=== PATIENT | female | born 1985 | race African-American/Black ===

== ENCOUNTER 2018-10-24 06:23 | Inpatient (IN) | payer SELFPAY ==
[~2018-10-24] VITALS: Ht 167.6 cm; Wt 77.1 kg
[2018-10-24] MEDS ORDERED: LACTATED RINGERS 1,000 ML IV SCH (06:41)
[2018-10-24] MEDS ORDERED: DEXT 5%/LR + PITOCIN 20UNITS/L 1,000 ML IV SCH ×2 (06:41→08:55)
[2018-10-24] MEDS ORDERED: BUTORPHANOL TARTRATE 2 MG/ML VIAL IV PRN ×2 (06:45→09:45)
[2018-10-24] MEDS ORDERED: LIDOCAINE HCL 1% 20ML VIAL (Pyxis) INJ INFIL SCH (06:45)
[2018-10-24] MEDS ORDERED: NALOXONE HCL 0.4 MG/ML 1ML VIAL IM PRN (06:45)
[2018-10-24] MEDS ORDERED: METHYLERGONOVINE MALEATE 0.2 MG/ML IM PRN (06:45)
[2018-10-24] MEDS ORDERED: CARBOPROST TROMETHAMINE 250 MCG/ML AMPUL IM PRN (06:45)
[2018-10-24] MEDS ORDERED: TERBUTALINE SULFATE 1MG/ML VIAL SUBCUT ONE (07:00)
[2018-10-24 07:07] LABS: BASOPHILS % 0.2 % (0.0-2.0); CLARITY URINE CLEAR (CLEAR); COLOR URINE YELLOW (YELLOW); EOSINOPHILS % 0.6 % (0.0-5.0); HEMATOCRIT. 29.5 % (36.0-48.0); HEMOGLOBIN. 9.7 g/dL (12.0-16.0); KETONES URINE NEGATIVE (NEGATIVE); LEUKOCYTE ESTERASE URINE 1+ (NEGATIVE); LYMPHOCYTES % 27.7 % (20.0-50.0); MEAN CORPUSCULAR HEMOGLOBIN 23.5 pg (28.0-32.0); MEAN CORPUSCULAR VOLUME 71.5 fL (81.0-99.0); MEAN PLATELET VOLUME 7.5 fl (7.4-10.4); MONOCYTES % 10.2 % (2.0-8.0); NEUTROPHILS % 61.3 % (40.0-76.0); NITRITE URINE NEGATIVE (NEGATIVE); OCCULT BLOOD URINE TRACE (NEGATIVE); PLATELET 354 x1000/uL (130-400); PROTEIN URINE NEGATIVE (NEGATIVE); RED BLOOD CELL COUNT 4.12 mill/uL (4.2-5.4); RED CELL DISTRIBUTION WIDTH 16.6 % (11.6-14.6); SPECIFIC GRAVITY URINE 1.012 (1.005-1.030); UROBILINOGEN URINE 0.2 E.U./dL (0.2-1.0)
[2018-10-24] MEDS ORDERED: MORPHINE SULFATE/PF 1MG/ML 10ML AMP ONE (07:12)
[2018-10-24 07:13] LABS: INR 0.9; PARTIAL THROMBOPLASTIN TIME 27.1 sec (23.4-31.0); PROTHROMBIN TIME 9.4 sec (9.1-11.1)
[2018-10-24] MEDS ORDERED: FENTANYL CITRATE/PF 50MCG/ML 2ML VIAL ONE (07:13)
[2018-10-24] MEDS ORDERED: BUPIVACAINE HCL/DEXTROSE/PF 0.75% 2ML AMP INJ ONE ×2 (07:13→07:35)
[2018-10-24 07:25] LABS: *AMPHETAMINES SCREEN URINE NEGATIVE (NEGATIVE); *BARBITURATES SCREEN URINE NEGATIVE (NEGATIVE); *BENZODIAZEPINES SCREEN URINE NEGATIVE (NEGATIVE)
[2018-10-24 07:26] LABS: METHADONE URINE SCREEN NEGATIVE (NEGATIVE); OPIATES URINE SCREEN NEGATIVE (NEGATIVE)
[2018-10-24 07:28] LABS: *COCAINE SCREEN URINE NEGATIVE (NEGATIVE); PHENCYCLIDINE URINE SCREEN NEGATIVE (NEGATIVE)
[2018-10-24] MEDS ORDERED: EPHEDRINE SULFATE 50MG/ML VIAL ONE (07:35)
[2018-10-24] MEDS ORDERED: GLYCOPYRROLATE 0.2 MG/ML 2ML VIAL ONE (07:35)
[2018-10-24] MEDS ORDERED: PHENYLEPHRINE HCL 10 MG/ML 1ML (IV VIAL) IV ONE (07:35)
[2018-10-24] MEDS ORDERED: CEFAZOLIN 2000MG PREMIX 50 ML IV ONE (07:35)
[2018-10-24] MEDS ORDERED: ONDANSETRON HCL 4MG/2ML INJ ONE (07:35)
[2018-10-24] MEDS ORDERED: BUPIVACAINE HCL/PF 0.25% (2.5MG/ML) 10ML ONE (07:38)
[2018-10-24 07:45] LABS: HEPATITIS B SURFACE ANTIGEN NEGATIVE
[2018-10-24 07:50] LABS: CANNABINOID URINE SCREEN PRESUMTIVE POSITIVE (NEGATIVE)
[2018-10-24] MEDS ORDERED: LIDOCAINE HCL 2%/EPINEPHRINE 1:100,000 20 ML VIAL INFIL ONE ×2 (07:53→08:17)
[2018-10-24] MEDS ORDERED: MIDAZOLAM HCL 2 MG/2 ML VIAL ONE (08:37)
[2018-10-24] MEDS ORDERED: OXYTOCIN 10 UNITS/ML 1ML ONE (08:46)
[2018-10-24] MEDS ORDERED: DIPHENHYDRAMINE 50MG/ML VIAL ONE (08:49)
[2018-10-24] MEDS ORDERED: KETOROLAC 60MG/2ML VIAL IM ONE (08:50)
[2018-10-24] MEDS ORDERED: TETANUS, DIPHTHERIA, PERTUSSIS VAC/PF 0.5ML (>7YR OLD) IM ONE (09:00)
[2018-10-24] MEDS ORDERED: LANOLIN OINT 0.25 GM TUBE TOP PRN (09:00)
[2018-10-24] MEDS ORDERED: HYDROMORPHONE HCL/PF 2MG/ML CPJ IM PRN (09:00)
[2018-10-24] MEDS ORDERED: HYDROCODONE/ACETAMINOPHEN 5/325MG TABLET PO PRN (09:00)
[2018-10-24] MEDS ORDERED: ONDANSETRON HCL 4MG/2ML INJ IV PRN (09:00)
[2018-10-24] MEDS ORDERED: DIPHENHYDRAMINE 25MG CAPSULE PO PRN (09:00)
[2018-10-24] MEDS ORDERED: BISACODYL 10MG SUPP PR PRN (09:00)
[2018-10-24] MEDS ORDERED: IBUPROFEN 400MG TABLET PO PRN (09:00)
[2018-10-24] MEDS ORDERED: INFLUENZA VIRUS VACCINE(AFLURIA) 0.5ML SYR IM ONE (09:00)
[2018-10-24] MEDS ORDERED: NALOXONE HCL 0.4 MG/ML 1ML VIAL IV PRN (09:45)
[2018-10-24] MEDS ORDERED: DIPHENHYDRAMINE 50MG/ML VIAL IV PRN (09:45)
[2018-10-24] MEDS ORDERED: KETOROLAC 30MG/ML VIAL IV PRN (09:45)
[2018-10-24 12:30] VITALS: BP 131/61
[2018-10-24 13:00] VITALS: BP 107/55
[2018-10-24 14:00] VITALS: BP 129/60
[2018-10-24 17:00] VITALS: BP 126/65
[2018-10-24] MEDS: SIMETHICONE 80MG TABLET CHEW PO SCH ×2 (18:00→20:00)
[2018-10-24 19:30] VITALS: BP 116/65
[2018-10-24] MEDS: DOCUSATE SODIUM 100MG CAPSULE PO SCH (20:19)
[2018-10-24 23:30] VITALS: BP 122/68
[2018-10-25 04:00] VITALS: BP 120/67
[2018-10-25 06:45] LABS: BASOPHILS % 0.2 % (0.0-2.0); EOSINOPHILS % 0.1 % (0.0-5.0); HEMATOCRIT. 28.4 % (36.0-48.0); LYMPHOCYTES % 13.8 % (20.0-50.0); MEAN CORPUSCULAR VOLUME 72.8 fL (81.0-99.0); MEAN PLATELET VOLUME 7.8 fl (7.4-10.4); MONOCYTES % 6.6 % (2.0-8.0); NEUTROPHILS % 79.3 % (40.0-76.0); PLATELET 317 x1000/uL (130-400); RED CELL DISTRIBUTION WIDTH 16.6 % (11.6-14.6)
[2018-10-25 15:27] VITALS: BP 130/76
[2018-10-25] MEDS: FERROUS SULFATE 325MG TABLET PO SCH (17:51)
[2018-10-25] MEDS: IBUPROFEN 800MG TABLET PO PRN (17:52)
[2018-10-25 20:00] VITALS: BP 124/74
[2018-10-25] MEDS: DOCUSATE SODIUM 100MG CAPSULE PO SCH (21:52)
[2018-10-26] VITALS: BP 119/51
[2018-10-26] MEDS: IBUPROFEN 800MG TABLET PO PRN ×2 (01:14→13:37)
[2018-10-26 04:00] VITALS: BP 121/48
[2018-10-26 08:36] LABS: BASOPHILS % 0.5 % (0.0-2.0); EOSINOPHILS % 1.3 % (0.0-5.0); HEMATOCRIT. 28.1 % (36.0-48.0); HEMOGLOBIN. 9.2 g/dL (12.0-16.0); LYMPHOCYTES % 22.8 % (20.0-50.0); MEAN CORPUSCULAR HEMOGLOBIN 23.7 pg (28.0-32.0); MEAN CORPUSCULAR VOLUME 72.7 fL (81.0-99.0); MEAN PLATELET VOLUME 7.6 fl (7.4-10.4); MONOCYTES % 10.9 % (2.0-8.0); NEUTROPHILS % 64.5 % (40.0-76.0); PLATELET 324 x1000/uL (130-400); RED BLOOD CELL COUNT 3.87 mill/uL (4.2-5.4)
[2018-10-26] MEDS: SIMETHICONE 80MG TABLET CHEW PO SCH (08:38)
[2018-10-26] MEDS: FERROUS SULFATE 325MG TABLET PO SCH ×2 (08:39→13:37)
[2018-10-30 17:06] LABS: CANNABINOID CONFIRMATION URINE Positive (.)
== END 2018-10-26 13:30 | disposition home or self-care (01) | DRG 540 ==
LOC: 8 EST LDRP 06:23 → OBSVTOIN 06:23 → 8EST 13:47
PROVIDERS: ADMIT Specialist; ATTEND Specialist
PROC: 10D00Z1 Extraction of Products of Conception, Low, Open Approach (ICD-10-PCS; principal; 2018-10-24)
DX: O34.211 Maternal care for low transverse scar from previous cesarean delivery (principal); O99.324 Drug use complicating childbirth; D64.9 Anemia, unspecified; O99.334 Smoking (tobacco) complicating childbirth; O99.02 Anemia complicating childbirth; F12.10 Cannabis abuse, uncomplicated; F17.210 Nicotine dependence, cigarettes, uncomplicated; Z37.0 Single live birth; Z3A.36 36 weeks gestation of pregnancy; Z90.79 Acquired absence of other genital organ(s)
CPT/HCPCS: 36415; 80305; 80349; 86592; 86703; 86762; 86850; 86900; 87340; 88307; 90686; 90715; J0690; J1200; J1885; J2250; J2274; J2370; J2405; J2590; J3010; J3105; J3490

== ENCOUNTER 2024-01-20 08:53 | Emergency (ER) | payer SELFPAY ==
[~2024-01-20] VITALS: Ht 167.6 cm; Wt 75.0 kg
[2024-01-20 09:06] VITALS: O2SAT 100
[2024-01-20] MEDS: LIDOCAINE HCL/EPINEPHRINE 1%-EPI 1:100,000 20 ML VIAL INFIL ONE (10:00)
[2024-01-20] MEDS: BACITRACIN ZINC OINT UDPKT TOP ONE (10:00)
[2024-01-20] MEDS ORDERED: BO1 TP (11:09)
[2024-01-20] MEDS: TETANUS, DIPHTHERIA, PERTUSSIS VAC/PF 0.5ML (>10YR OLD) IM ONE (11:14)
[2024-01-20 11:38] VITALS: BP 160/105; PULSE 71; RESP 16; TEMP 98.2
== END 2024-01-20 13:23 | disposition home or self-care (01) ==
LOC: ER 08:53
DX: S61.411A Laceration without foreign body of right hand, initial encounter (principal); W25.XXXA Contact with sharp glass, initial encounter; Y93.89 Activity, other specified; Y92.89 Other specified places as the place of occurrence of the external cause; Y99.8 Other external cause status
CPT/HCPCS: 99283; 90715; 12002; 90471; J3490

== ENCOUNTER 2024-07-28 03:26 | Emergency (ER) | payer OTHER ==
[~2024-07-28 03:26] MED LIST: BO1 TP
[2024-07-28] MEDS ORDERED: NAPR375T5 MT (04:34)
[2024-07-28] MEDS: KETOROLAC 30MG/ML VIAL IM ONE (05:00)
[2024-07-28 05:15] VITALS: BP 133/78; PULSE 79; RESP 16; TEMP 36.66960; O2SAT 100
== END 2024-07-28 06:04 | disposition home or self-care (01) ==
LOC: ER 03:26
DX: M25.532 Pain in left wrist (principal)
CPT/HCPCS: 81025; 73110; 29125; 96372; 99283; J1885; Z7610

== ENCOUNTER 2024-10-27 01:32 | Emergency (ER) | payer OTHER ==
[~2024-10-27] VITALS: Ht 167.6 cm; Wt 86.0 kg
[~2024-10-27 01:32] MED LIST changes: +NAPR-1494 MT
[2024-10-27 01:38] VITALS: O2SAT 100
[2024-10-27 01:50] VITALS: BP 200/109; PULSE 110; RESP 16; O2SAT 100
[2024-10-27] MEDS ORDERED: ACET-2708 MT (03:05)
[2024-10-27 04:23] VITALS: TEMP 98.2
[2024-10-27] MEDS: ACETAMINOPHEN 325MG TABLET PO NR (04:23)
== END 2024-10-27 04:26 | disposition home or self-care (01) ==
LOC: ER 02:51
DX: S92.511A Displaced fracture of proximal phalanx of right lesser toe(s), initial encounter for closed fracture (principal); Z98.890 Other specified postprocedural states; X58.XXXA Exposure to other specified factors, initial encounter; Y93.89 Activity, other specified; Y92.89 Other specified places as the place of occurrence of the external cause; Y99.8 Other external cause status
CPT/HCPCS: 73630; 99283; Z7610